=== PATIENT | female | born 1965 | race American Indian/Alaskan Native ===

== ENCOUNTER 2017-05-16 15:52 | Emergency (ER) | payer BC ==
[2017-05-16 21:46] LABS: Basophils % (Auto) 0.5 % (0.0-1.8); Eosinophils # (Auto) 0.2 K/mm3 (0.0-0.4); Hematocrit 40.7 % (30.3-42.9); Lymphocytes # (Auto) 3.2 K/mm3 (1.2-5.4); Lymphocytes % (Auto) 37.8 % (13.4-35.0); Mean Corpuscular HGB Conc 32 % (30-34); Mean Corpuscular Volume 80 fl (79-97); Monocytes # (Auto) 0.6 K/mm3 (0.0-0.8); Monocytes % (Auto) 7.2 % (0.0-7.3); Platelet Count 374 K/mm3 (140-440); Red Cell Distribution Width 14.3 % (13.2-15.2)
[2017-05-16 21:49] LABS: Alanine Aminotransferase 20 units/L (7-56); Albumin 4.1 g/dL (3.9-5); BUN/Creatinine Ratio 15; Blood Urea Nitrogen 12 mg/dL (7-17); Calcium 9.3 mg/dL (8.4-10.2); Hemolysis Index 19; Mean Corpuscular Hemoglobin 26 pg (28-32)
--- NOTE | 2017-05-16 23:50 | Emergency Department Report ---
HPI - General Chief Complaint: GI Bleed Time Seen by Provider: 05/16/17 23:36 - HPI HPI: Room 7 The patient is a 52-year-old female presented with a chief complaint of abdominal pain and hematochezia. Patient states for one year she suffered from intermittent epigastric abdominal pain associated with 4-5 days of passing blood per rectum. The patient states in the summer 2016 she had a colonoscopy and an EGD which only revealed a hiatal hernia. Patient states the blood per rectum has been dark red. Patient states her abdominal pain has been intermittent and sharp and stabbing in nature. Patient currently denies abdominal pain. 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 hiatal hernia - Surgical History Past Surgical History?: Yes Additional Surgical History: fibroid removal. - Family History Family history: no significant - Social History Smoking Status: Never Smoker Substance Use Type: None - Medications Home Medications: Home Medications Medication Instructions Recorded Confirmed Last Taken Type Aspirin [Aspirin TAB] 325 mg PO QDAY tablet 10/25/14 Unknown Rx SUMAtriptan SUCCINATE [Imitrex] 50 mg PO Q2H PRN #30 tablet 10/25/14 Unknown Rx Simvastatin [Zocor TAB] 20 mg PO QHS #30 tablet 10/25/14 Unknown Rx Topiramate [Topamax] 50 mg PO Q12HR #60 tablet 10/25/14 Unknown Rx Cyclobenzaprine HCl [Flexeril 5 MG 5 mg PO TID PRN #21 tab 10/12/15 Unknown Rx TAB] Ibuprofen [Motrin 800 MG tab] 800 mg PO Q8HR PRN #30 tablet 10/12/15 Unknown Rx Famotidine [Pepcid] 20 mg PO BID #20 tablet 05/17/17 Unknown Rx HYDROcodone/APAP 5-325 [[place] 1 - 2 each PO Q6HR PRN #10 tablet 05/17/17 Unknown Rx 5/325] ED Review of Systems ROS: Stated complaint: ABDOMINAL PAIN Other details as noted in HPI Gastrointestinal: abdominal pain, diarrhea, hematochezia Physical Exam - Physical Exam Vital Signs: Vital Signs 05/16/17 16:06 Temperature 97.9 F Pulse Rate 81 Respiratory 18 Rate Blood Pressure 132/82 O2 Sat by Pulse 98 Oximetry Physical Exam: GENERAL: The patient is well-developed well-nourished female lying on stretcher not appear to be in acute distress. [] HEENT: Normocephalic. Atraumatic. Extraocular motions are intact. Patient has moist mucous membranes. NECK: Supple. Trachea midline CHEST/LUNGS: Clear to auscultation. There is no respiratory distress noted. HEART/CARDIOVASCULAR: Regular. There is no tachycardia. There is no gallop rub or murmur. ABDOMEN: Abdomen is soft, with mild discomfort to palpation in the midepigastric region. The abdomen is otherwise nontender to palpation. Patient has normal bowel sounds. There is no abdominal distention. SKIN: There is no rash. There is no edema. There is no diaphoresis. NEURO: The patient is awake, alert, and oriented. The patient is cooperative. The patient has normal speech MUSCULOSKELETAL: There is no evidence of acute injury. RECTUM: Faint guaiac positive. No external hemorrhoids seen. No internal hemorrhoids palpated. ED Course Vital Signs 05/16/17 16:06 Temperature 97.9 F Pulse Rate 81 Respiratory 18 Rate Blood Pressure 132/82 O2 Sat by Pulse 98 Oximetry ED Medical Decision Making - Lab Data Result diagrams: 05/17/17 03:15 05/16/17 21:15 FINAL REPORT EXAM: CT ABDOMEN PELVIS W CON HISTORY: epigastric abdominal pain, hematochezia TECHNIQUE: Routine axial imaging was obtained of the abdomen and pelvis following the intravenous injection of 100 cc of Omnipaque 350. Delayed imaging was obtained through the kidneys ureters and bladder. Sagittal coronal reconstructions were reviewed also. FINDINGS: The lung bases are clear. Pleural fluid is not seen. The liver is normal size and reveals diminished attenuation suggesting hepatic steatosis. The gallbladder, biliary tree, pancreas, spleen, and adrenal glands appear normal. The kidneys enhance normally. There is a 3 cm cortical cyst laterally in the right kidney. There is no evidence of hydronephrosis. The vascular structures enhance normally. The bowel loops are normal in caliber. There are scattered uncomplicated colonic diverticula within the colon. The appendix appears normal. There is no evidence of free fluid or adenopathy. In the pelvis the uterus is normal in size and contains an IUD in the expected position. There are no adnexal masses. The bladder appears normal. The skeletal structures are unremarkable. IMPRESSION: No acute process in the abdomen and pelvis. Uncomplicated colonic diverticulosis. 3 cm cortical cyst laterally in the right kidney. Transcribed By: ISABELLA Dictated By: VIJAY MONROE MD Electronically Authenticated By: VIJAY MONROE MD Signed Date/Time: 05/16/172253 DD/ 53 TD/TT: 05/16/172253 - Radiology Data Radiology results: report reviewed (CT abdomen and pelvis), image reviewed (CT abdomen and pelvis) FINAL REPORT EXAM: CT ABDOMEN PELVIS W CON HISTORY: epigastric abdominal pain, hematochezia TECHNIQUE: Routine axial imaging was obtained of the abdomen and pelvis following the intravenous injection of 100 cc of Omnipaque 350. Delayed imaging was obtained through the kidneys ureters and bladder. Sagittal coronal reconstructions were reviewed also. FINDINGS: The lung bases are clear. Pleural fluid is not seen. The liver is normal size and reveals diminished attenuation suggesting hepatic steatosis. The gallbladder, biliary tree, pancreas, spleen, and adrenal glands appear normal. The kidneys enhance normally. There is a 3 cm cortical cyst laterally in the right kidney. There is no evidence of hydronephrosis. The vascular structures enhance normally. The bowel loops are normal in caliber. There are scattered uncomplicated colonic diverticula within the colon. The appendix appears normal. There is no evidence of free fluid or adenopathy. In the pelvis the uterus is normal in size and contains an IUD in the expected position. There are no adnexal masses. The bladder appears normal. The skeletal structures are unremarkable. IMPRESSION: No acute process in the abdomen and pelvis. Uncomplicated colonic diverticulosis. 3 cm cortical cyst laterally in the right kidney. Transcribed By: ISABELLA Dictated By: VIJAY MONROE MD Electronically Authenticated By: VIJAY MONROE MD Signed Date/Time: 05/16/172253 DD/ 53 TD/TT: 05/16/172253 - Differential Diagnosis peptic ulcer disease, hematochezia, enteritis Critical care attestation.: If time is entered above; I have spent that time in minutes in the direct care of this critically ill patient, excluding procedure time. ED Disposition Clinical Impression: Abdominal pain, Hematochezia Disposition: TO HOME OR SELFCARE Is pt being admited?: No Does the pt Need Aspirin: No Condition: Stable Instructions: Gastrointestinal Bleeding (ED), Acute Abdominal Pain (ED) Additional Instructions: Return to the emergency department immediately should you develop worsening symptoms, fever, inability to tolerate food or liquid or any other concerns. Prescriptions: Famotidine [Pepcid] 20 mg PO BID #20 tablet HYDROcodone/APAP 5-325 [[place] 5/325] 1 - 2 each PO Q6HR PRN #10 tablet PRN Reason: Pain Referrals: PRIMARY CARE, [Primary Care Provider] - 3-5 Days your brick unloader tenderDirk [Other] - DANIEL Forms: Accompanied Note Time of Disposition: 04:04
--- NOTE | 2017-05-17 02:56 | Cat Scan Report ---
FINAL REPORT EXAM: CT ABDOMEN PELVIS W CON HISTORY: epigastric abdominal pain, hematochezia TECHNIQUE: Routine axial imaging was obtained of the abdomen and pelvis following the intravenous injection of 100 cc of Omnipaque 350. Delayed imaging was obtained through the kidneys ureters and bladder. Sagittal coronal reconstructions were reviewed also. FINDINGS: The lung bases are clear. Pleural fluid is not seen. The liver is normal size and reveals diminished attenuation suggesting hepatic steatosis. The gallbladder, biliary tree, pancreas, spleen, and adrenal glands appear normal. The kidneys enhance normally. There is a 3 cm cortical cyst laterally in the right kidney. There is no evidence of hydronephrosis. The vascular structures enhance normally. The bowel loops are normal in caliber. There are scattered uncomplicated colonic diverticula within the colon. The appendix appears normal. There is no evidence of free fluid or adenopathy. In the pelvis the uterus is normal in size and contains an IUD in the expected position. There are no adnexal masses. The bladder appears normal. The skeletal structures are unremarkable. IMPRESSION: No acute process in the abdomen and pelvis. Uncomplicated colonic diverticulosis. 3 cm cortical cyst laterally in the right kidney.
[2017-05-17 03:23] LABS: Hematocrit 39.7 % (30.3-42.9); Hemoglobin 12.6 gm/dl (10.1-14.3)
[2017-05-17 04:11] VITALS: BP 129/84
== END 2017-05-17 04:19 | disposition home or self-care (01) ==
LOC: ED 15:52
DX: K92.1 Melena (principal); R10.13 Epigastric pain; Z86.73 Personal history of transient ischemic attack (TIA), and cerebral infarction without residual deficits; Z79.82 Long term (current) use of aspirin; Z88.0 Allergy status to penicillin
CPT/HCPCS: 36415; 74177; 80053; 82271; 85014; 85018; 85025; 99284; Q9967

== ENCOUNTER 2019-05-17 14:51 | Emergency (ER) | payer OTHER ==
[2019-05-17 14:57] VITALS: BP 129/90
== END 2019-05-17 15:51 | disposition left against medical advice (07) ==
LOC: ED 14:51
DX: M62.838 Other muscle spasm (principal); Z53.21 Procedure and treatment not carried out due to patient leaving prior to being seen by health care provider